=== PATIENT | male | born 1970 | race Caucasian/White ===

== ENCOUNTER 2018-11-12 11:44 | Day surgery (SDC) | payer OTHER ==
--- NOTE | 2018-11-10 19:39 | HP ---
Date/Time of Note Date/Time of Note DATE: 11/10/18 TIME: 19:29 Assessment/Plan VTE Prophylaxis SCD applied (from Ns): Yes SCD contraindicated: low risk/ambulating Pharmacological prophylaxis: NA/contraindicated Pharm contraindication: low risk/ambulating Lines/Catheters IV [facility]from [facility] [place] [employer] line still needed: No Urinary Cath still in place: No Assessment/Plan Hospital Course The patient will be admitted to same day surgery. He will undergo bilateral inguinal hernia repairs using initial bite repair. He should be discharged afterwards. Problems: (1) Inguinal hernia Status: Chronic Qualifiers: Obstruction and gangrene presence: without obstruction or gangrene Laterality: bilateral Recurrence: non-recurrent Qualified Codes: K40.20 - Bilateral inguinal hernia, without obstruction or gangrene, not specified as recurrent Assessment/Plan Bilateral inguinal hernias, both reducible. We have discussed the disease process with the patient. We discussed non operative risks to include enlarging hernias and small bowel obstruction. He understands the risk of surgery, repair include but not exclusive to: Bleeding, infection, chronic pain syndrome, pain lasting beyond 7 months, repeat surgery, damage to bowel or intestine requiring larger operation, and loss or damage of testicles. He understands postoperatively he will have swelling, c onstipation, and pain. After some discussion the patient would like to proceed with bilateral Shouldice repairs. HPI/ROS Admit Date/Time Admit Date/Time 11/12/2018 Hx of Present Illness This is a 48-year-old male. He presents to clinic with bilateral inguinal hernias. He has noticed the first inguinal hernia on the right side proximally 7 years ago. It is slowly growing and requires him to self reduce it. The left side is a smaller hernia which is new. This hernias more painful. Both hernias causing discomfort while lifting. He denies previous surgery. After some discussion the patient would like to proceed with bilateral shoulders repairs. He understands no mesh would be placed. ROS Constitutional: no complaints, improved Eyes: no complaints ENT: no complaints Respiratory: no complaints Cardiovascular: no complaints Gastrointestinal: no complaints Genitourinary: no complaints Musculoskeletal: no complaints Skin: no complaints Neurologic: no complaints Psychological: no complaints, nl mood/affect PMH/Family/Social Past Medical History Medical History: no pertinent history Past Surgical History Past Surgical Hx: no surgical history Social History Alcohol Use: none Smoking Status: Current every day smoker Drug Use: none Exam/Review of Systems Exam Constitutional: alert, oriented, well developed Psych: no complaints, nl mood/affect Head: normocephalic, atraumatic Eyes: nl conjunctiva, EOMI, nl sclera ENMT: nl lips & teeth Neck: supple Respiratory: clear to auscultation, normal air movement Cardiovascular: regular rate and rhythm, nl pulses Gastrointestinal: soft, nl liver, spleen, non-tender, other (Patient has a healthy abdominal wall. He has a large right reducible inguinal hernia. He has a small left reducible inguinal hernia. His testicles are descended bilaterally, there are no masses.) Genitourinary - Male: nl penis, nl scrotum Musculoskeletal: nl extremities to inspection, nl gait and stance Extremities: normal pulses Neurological: QUALITY CLOTH TESTER II-XII intact, nl mental status, nl speech CELESTINE STEPHENSON M.D. Nov 10, 2018 19:39
[2018-11-12] VITALS (15 sets, daily range): BP systolic 107–134; BP diastolic 60–80; PULSE 58–99; RESP 16–55; Ht 152.4 cm; Wt 60.0 kg
[~2018-11-12] VITALS: Ht 152.4 cm; Wt 60.0 kg
[~2018-11-12 11:44] MED LIST: CEFAZOLIN 1 GM INJ ONE; CEFAZOLIN 2 GM/50 ML (PMX) 50 ML IVPB ONE
[2018-11-12] MEDS ORDERED: MEPERIDINE 100 MG INJ ONE (14:24)
[2018-11-12] MEDS ORDERED: GLYCOPYRROLATE 0.4 MG INJ ONE ×2 (14:24→17:19)
[2018-11-12] MEDS ORDERED: SUCCINYLCHOLINE CHLORIDE 100 MG/5 ML SYG IV ONE (14:24)
[2018-11-12] MEDS ORDERED: PROPOFOL 20 ML ONE (14:24)
[2018-11-12] MEDS ORDERED: ROCURONIUM 50 MG INJ ONE (14:24)
[2018-11-12] MEDS ORDERED: LIDOCAINE 2% (SDV) 5 ML INJ ONE (14:24)
[2018-11-12] MEDS ORDERED: NEOSTIGMINE 3 MG/3 ML SYRINGE ONE (14:24)
--- NOTE | 2018-11-12 14:39 | PREAC ---
Date/Time of Note Date/Time of Note DATE: 11/12/18 TIME: 14:38 Anesthesia Eval and Record Evaluation Time Pre-Procedure Interview DATE: 11/12/18 TIME: 14:38 Age 48 Sex male NPO: 8 hrs Preoperative diagnosis Bilateral inguinal hernia Planned procedure Open hernia repair with mesh Past Medical History Past Medical History: Includes Pulm: Smoking Hx Surgery & Anesthesia Issues No known issue Meds Anticoagulation: No Beta Erendira within 24 hr: No Reason Beta Erendira not given: Pt. not on B-Erendira No Active Prescriptions or Reported Meds Meds reviewed: Yes Allergies Coded Allergies: No Known Allergy (Unverified , 11/12/18) Allergies Reviewed: Yes Labs/Studies Labs Reviewed: Reviewed by anesthesiologist test: N/A Pre-procedure Exam Last vitals Vital Signs Date Temp Pulse Resp B/P (MAP) Pulse Ox O2 O2 Flow FiO2 Time Delivery Rate 11/12/18 97.8 58 121/60 100 12:47 (80) Airway: Adequate mouth opening Mallampati: Mallampati I Teeth: Normal Lung: Normal Heart: Normal ASA Physical Status ASA physical status: 1 Emergency: None Planned Anesthetic General/MAC: ETT Planned Pain Management Parenteral pain med Pre-operative Attestations Prior to commencing anesthesia and surgery, the patient was re-evaluated, there was verification of: *The patient's identity *The results of appropriate recent lab work and preoperative vital signs *The above evaluation not changing prior to induction *Anesthetic plan, risk benefits, alternative and complications discussed with patient/family; questions answered; patient/family understands, accepts and wishes to proceed. MELISSA JONAS MD Nov 12, 2018 14:39
[2018-11-12] MEDS ORDERED: POLYMYXIN/BACITRACIN 1L IRRIG ONE (14:52)
[2018-11-12] MEDS ORDERED: BUPIVACAINE 0.25% (MPF) 30 ML INJ ONE (14:52)
[2018-11-12] MEDS ORDERED: LIDOCAINE 1%/EPI (1:100,000) (MDV) 20 ML ONE (14:55)
--- NOTE | 2018-11-12 14:58 | HPN ---
Date/Time of Note Date/Time of Note DATE: 11/12/18 TIME: 14:57 Interval H&P Admission Note Pt. seen H&P reviewed: No system changes Discussed operative plan with patient. I dated if the hernia defect is quite large we did be okay to place mesh. He stated to use my best judgment. But agreed with mesh if needed. CELESTINE STEPHENSON M.D. Nov 12, 2018 14:58
[2018-11-12] MEDS ORDERED: METOCLOPRAMIDE 10 MG INJ IV PRN (15:00)
[2018-11-12] MEDS ORDERED: FENTAnyl 50 MCG/ML VIAL IV PRN ×3 (15:00)
[2018-11-12] MEDS ORDERED: MEPERIDINE 25 MG INJ IV PRN (15:00)
[2018-11-12] MEDS ORDERED: DIPHENHYDRAMINE 50 MG INJ IV PRN (15:00)
[2018-11-12] MEDS ORDERED: OXYCODONE/ACETAMINOPHEN (5/325) TAB PO PRN ×2 (15:00)
[2018-11-12] MEDS ORDERED: ONDANSETRON 4 MG INJ IV PRN (15:00)
[2018-11-12] MEDS ORDERED: MIDAZOLAM 1 MG/ML 2 ML INJ IV PRN (15:00)
[2018-11-12] MEDS ORDERED: HYDROmorphONE 1 MG/5 ML IV SYRINGE IV PRN ×3 (15:00)
[2018-11-12] MEDS ORDERED: KETOROLAC 30 MG INJ ONE (17:19)
--- NOTE | 2018-11-12 17:29 | OPR ---
Date/Time of Note Date/Time of Note DATE: 11/12/18 TIME: 17:20 Operative Report Procedure Date: Nov 12, 2018 Preoperative Diagnosis Bilateral inguinal hernias Postoperative Diagnosis Bilateral indirect inguinal hernias, right greater than left Operation/Procedure Performed Bilateral inguinal hernia repairs Shouldice technique, modified without sacrificing cremasteric muscles Surgeon Celestine Arce MD [employer] Consultant none Anesthesia Type: general Anesthesiologist: MELISSA JONAS MD Estimated Blood Loss: minimal Transfusion none Specimen none Grafts/Implants none Tubes/Drains none Complications none Pt Condition Post Procedure: stable Disposition: PACU Indications This is a 48-year-old gentleman. He has bilateral inguinal hernias. He requested a Shouldice repair understanding mesh will not be placed unless is absolutely necessary. Procedure Description The patient was brought in the operating room. He had been marked preoperatively. The patient was intubated. The patient was prepped and draped. A full timeout was performed. Local was infused in the area. An incision was made over the right inguinal canal. Dissection continued through Trupti's fascia. External oblique fascia was skeletonized. A ruddy was made in the external oblique fascia. The external oblique fascia was opened with care to ensure that there was no damage to the ilioinguinal nerve. Then the spermatic cord was dissected free from the canal. All 3 nerves were identified: The ileal inguinal nerve, hypogastric nerve, branch of genitofemoral nerve. The vas deferens and spermatic cord was dissected free from the hernia sac. The hernia sac was reduced. Then the floor of the canal was open, opening the transversalis fascia with care. Then the shelving edge of the transversalis was identified. The first layer Shouldice repair was performed using a running 0 Prolene suture reconstructing the new internal ring and then running the second layer back. If this layer reapproximated the transversalis fascia to the inguinal ligament. The second layer was performed reapproximating the internal oblique fascia to the inguinal ligament. This was also a running 2 layer closure. Care was taken during both closures to ensure that no nerves were injured or trapped in the closure. During both of these procedures the new internal ring was checked multiple times to ensure that it was not too tight. At the end of the second repair the new internal ring was inspected. It appeared to be tight enough to prevent a recurrence but not too tight to strangulate the cord. The area was checked for hemostasis. The external oblique fascia was reapproximated using a running 3-0 Vicryl suture. Care was taken not to entrap the cord structures nor the ileal inguinal nerve. More local was infused in the area. Trupti's fascia was reapproximated using interrupted 3-0 chromic suture. Skin was closed with running 4-0 Vicryl suture. The testicles were noted to be in the scrotum at the end of the procedure. The exact same procedure was done on the left side. At the end of both procedures and a complete sponge count was verified. At the end of the operation the sponge and needle count and instrument count were correct. Skin glue was used for dressing. CELESTINE ARCE M.D. Nov 12, 2018 17:29
--- NOTE | 2018-11-13 17:27 | PAC ---
Date/Time of Note Date/Time of Note DATE: 11/13/18 TIME: 17:27 Post-Anesthesia Notes Post-Anesthesia Note Last documented vital signs Vital Signs Date Temp Pulse Resp B/P (MAP) Pulse Ox O2 O2 Flow FiO2 Time Delivery Rate 11/12/18 68 25 119/80 100 Room Air 18:37 (93) 11/12/18 98.6 17:35 11/12/18 8.0 17:33 Activity: WNL Respiratory function: WNL Cardiovascular function: WNL Mental status: Baseline Pain reasonably controlled: Yes Hydration appropriate: Yes Nausea/Vomiting absent: Yes MELISSA JONAS MD Nov 13, 2018 17:27
== END 2018-11-12 19:00 | disposition home or self-care (01) ==
LOC: SDS 11:44
PROVIDERS: ATTEND Surgery Trauma Surgery
DX: K40.20 Bilateral inguinal hernia, without obstruction or gangrene, not specified as recurrent (principal); Z87.891 Personal history of nicotine dependence
CPT/HCPCS: 49505; J0690; J1885; J2175; J2710; J3010; Z7512; Z7610